=== PATIENT | female | born 1965 ===

== ENCOUNTER → 2021-04-12 | Outpatient (REF) ==
--- NOTE | 2021-04-12 12:43 | REPPI ---
INDICATION: DISABILITY DIAGNOSIS DETERMINATION COMPARISON: None. TECHNIQUE: AP, lateral, coned-down views of the lumbar spine. FINDINGS: Three views of the lumbosacral spine demonstrate satisfactory alignment and lordosis without acute fracture / compression injury or subluxation. Endplate sclerosis with minimal disc space narrowing at L5-S1. IMPRESSION: 1. No acute fracture / compression injury or subluxation. 2. Mild/early moderate degenerative change at L5-S1. <Electronically signed by Devyn Neil > 04/12/21 [id number]
== END ==
LOC: M PLAIMG 11:30
PROVIDERS: ATTEND Internal Medicine
DX: Z02.71 Encounter for disability determination (principal); M54.5 Low back pain